=== PATIENT | female | born 1965 | race Two or more races ===

== ENCOUNTER 2018-01-18 08:35 | Outpatient (CLI) | payer OTHER | END 2018-01-18 09:01 | disposition home or self-care (01) | LOC: TOM 08:35 | DX: C50.412 Malignant neoplasm of upper-outer quadrant of left female breast (principal); D51.1 Vitamin B12 deficiency anemia due to selective vitamin B12 malabsorption with proteinuria; D70.8 Other neutropenia; B27.90 Infectious mononucleosis, unspecified without complication; D51.8 Other vitamin B12 deficiency anemias; D50.8 Other iron deficiency anemias; E55.9 Vitamin D deficiency, unspecified; E78.5 Hyperlipidemia, unspecified; D25.9 Leiomyoma of uterus, unspecified ==

== ENCOUNTER 2018-11-26 09:21 | Outpatient (CLI) | payer OTHER | END 2018-11-26 09:35 | disposition home or self-care (01) | LOC: LAB 09:21 | DX: E03.8 Other specified hypothyroidism (principal); I10 Essential (primary) hypertension; D70.8 Other neutropenia; C50.412 Malignant neoplasm of upper-outer quadrant of left female breast; D51.1 Vitamin B12 deficiency anemia due to selective vitamin B12 malabsorption with proteinuria; E55.9 Vitamin D deficiency, unspecified; R97.0 Elevated carcinoembryonic antigen [CEA] ==

== ENCOUNTER 2018-11-26 10:26 | Outpatient (CLI) | payer OTHER | END 2018-11-26 16:40 | disposition home or self-care (01) | LOC: MAMO-SONO 10:26 | DX: C50.412 Malignant neoplasm of upper-outer quadrant of left female breast (principal) ==

== ENCOUNTER 2019-01-16 07:12 | Outpatient (CLI) | payer OTHER | END 2019-01-16 07:15 | disposition home or self-care (01) | LOC: SONOGRAMA 07:12 | DX: R10.2 Pelvic and perineal pain (principal) ==

== ENCOUNTER → 2019-02-20 | Outpatient (CLI) | payer OTHER | END | disposition home or self-care (01) | LOC: NUCLEAR 12:42 | DX: M81.0 Age-related osteoporosis without current pathological fracture (principal) ==

== ENCOUNTER 2019-03-06 08:25 | Outpatient (CLI) | payer OTHER | END 2019-03-06 10:09 | disposition home or self-care (01) | LOC: LAB 08:25 | DX: Z12.11 Encounter for screening for malignant neoplasm of colon (principal) ==

== ENCOUNTER 2019-08-01 08:21 | Outpatient (CLI) | payer OTHER | END 2019-08-01 08:32 | disposition home or self-care (01) | LOC: LAB 08:21 | DX: D51.1 Vitamin B12 deficiency anemia due to selective vitamin B12 malabsorption with proteinuria (principal); C50.412 Malignant neoplasm of upper-outer quadrant of left female breast; D70.8 Other neutropenia; B27.90 Infectious mononucleosis, unspecified without complication; D51.8 Other vitamin B12 deficiency anemias; D50.8 Other iron deficiency anemias; E55.9 Vitamin D deficiency, unspecified; E78.49 Other hyperlipidemia; D25.9 Leiomyoma of uterus, unspecified; I10 Essential (primary) hypertension; E03.8 Other specified hypothyroidism; R97.0 Elevated carcinoembryonic antigen [CEA]; R97.8 Other abnormal tumor markers ==

== ENCOUNTER 2019-08-07 07:50 | Outpatient (CLI) | payer OTHER | END 2019-08-07 17:00 | disposition home or self-care (01) | LOC: TOM 07:50 | DX: C50.412 Malignant neoplasm of upper-outer quadrant of left female breast (principal); D51.1 Vitamin B12 deficiency anemia due to selective vitamin B12 malabsorption with proteinuria; D70.8 Other neutropenia; B27.90 Infectious mononucleosis, unspecified without complication; D51.8 Other vitamin B12 deficiency anemias; D50.8 Other iron deficiency anemias; E55.9 Vitamin D deficiency, unspecified; E78.49 Other hyperlipidemia; D25.9 Leiomyoma of uterus, unspecified ==

== ENCOUNTER 2020-07-06 09:31 | Outpatient (CLI) | payer OTHER | END 2020-07-06 10:25 | disposition home or self-care (01) | LOC: LAB 09:31 | PROVIDERS: ATTEND Internal Medicine Hematology & Oncology | DX: D50.8 Other iron deficiency anemias (principal); I10 Essential (primary) hypertension; D50.0 Iron deficiency anemia secondary to blood loss (chronic); E03.8 Other specified hypothyroidism; R97.0 Elevated carcinoembryonic antigen [CEA]; R97.8 Other abnormal tumor markers; D51.8 Other vitamin B12 deficiency anemias; C50.412 Malignant neoplasm of upper-outer quadrant of left female breast; D51.1 Vitamin B12 deficiency anemia due to selective vitamin B12 malabsorption with proteinuria; D70.8 Other neutropenia; B27.90 Infectious mononucleosis, unspecified without complication; E55.9 Vitamin D deficiency, unspecified; E78.49 Other hyperlipidemia; D25.9 Leiomyoma of uterus, unspecified ==

== ENCOUNTER 2020-07-13 08:15 | Outpatient (CLI) | payer OTHER | END 2020-07-13 08:30 | disposition home or self-care (01) | LOC: TOM 08:15 | PROVIDERS: ATTEND Internal Medicine Hematology & Oncology | DX: K21.9 Gastro-esophageal reflux disease without esophagitis (principal); C50.412 Malignant neoplasm of upper-outer quadrant of left female breast; D51.1 Vitamin B12 deficiency anemia due to selective vitamin B12 malabsorption with proteinuria; D70.8 Other neutropenia; B27.90 Infectious mononucleosis, unspecified without complication; D51.8 Other vitamin B12 deficiency anemias; D50.8 Other iron deficiency anemias; E55.9 Vitamin D deficiency, unspecified; E78.49 Other hyperlipidemia; D25.9 Leiomyoma of uterus, unspecified ==

== ENCOUNTER 2020-10-21 11:46 | Outpatient (CLI) | payer OTHER | END 2020-10-21 11:58 | disposition home or self-care (01) | LOC: MAMO-SONO 11:46 | PROVIDERS: ATTEND Internal Medicine Hematology & Oncology | DX: N64.59 Other signs and symptoms in breast (principal) ==

== ENCOUNTER → 2022-01-23 07:52 | Outpatient (CLI) | payer OTHER | END | disposition home or self-care (01) | LOC: LAB 07:52 | PROVIDERS: ATTEND Internal Medicine Hematology & Oncology | DX: D50.8 Other iron deficiency anemias (principal); I10 Essential (primary) hypertension; R74.02 Elevation of levels of lactic acid dehydrogenase [LDH]; K76.89 Other specified diseases of liver; E55.9 Vitamin D deficiency, unspecified; E78.2 Mixed hyperlipidemia; E03.8 Other specified hypothyroidism; C50.919 Malignant neoplasm of unspecified site of unspecified female breast; R97.8 Other abnormal tumor markers; R87 Abnormal findings in specimens from female genital organs; C50.512 Malignant neoplasm of lower-outer quadrant of left female breast; D51.1 Vitamin B12 deficiency anemia due to selective vitamin B12 malabsorption with proteinuria; D70.8 Other neutropenia; B27.90 Infectious mononucleosis, unspecified without complication; D51.8 Other vitamin B12 deficiency anemias; E78.5 Hyperlipidemia, unspecified; D25.9 Leiomyoma of uterus, unspecified; D72.818 Other decreased white blood cell count ==

== ENCOUNTER 2022-01-30 07:25 | Outpatient (CLI) | payer OTHER | END 2022-01-30 07:51 | disposition home or self-care (01) | LOC: TOM 07:25 | PROVIDERS: ATTEND Internal Medicine Hematology & Oncology | DX: Z12.31 Encounter for screening mammogram for malignant neoplasm of breast (principal); N63.0 Unspecified lump in unspecified breast; C50.412 Malignant neoplasm of upper-outer quadrant of left female breast; D51.1 Vitamin B12 deficiency anemia due to selective vitamin B12 malabsorption with proteinuria; D70.8 Other neutropenia; B27.90 Infectious mononucleosis, unspecified without complication; D51.8 Other vitamin B12 deficiency anemias; D50.8 Other iron deficiency anemias; E55.9 Vitamin D deficiency, unspecified; E78.5 Hyperlipidemia, unspecified; D25.9 Leiomyoma of uterus, unspecified; D72.818 Other decreased white blood cell count ==

== ENCOUNTER 2022-10-23 12:25 | Outpatient (CLI) | payer OTHER | END 2022-10-23 12:27 | disposition home or self-care (01) | LOC: NUCLEAR 12:25 | PROVIDERS: ATTEND Obstetrics & Gynecology | DX: M85.9 Disorder of bone density and structure, unspecified (principal) ==

== ENCOUNTER 2023-01-22 08:04 | Outpatient (CLI) | payer OTHER | END 2023-01-22 08:11 | disposition home or self-care (01) | LOC: LAB 08:04 | PROVIDERS: ATTEND Obstetrics & Gynecology | DX: D50.8 Other iron deficiency anemias (principal); I10 Essential (primary) hypertension; R74.02 Elevation of levels of lactic acid dehydrogenase [LDH]; K76.89 Other specified diseases of liver; D51.8 Other vitamin B12 deficiency anemias; E55.9 Vitamin D deficiency, unspecified; E78.2 Mixed hyperlipidemia; E03.8 Other specified hypothyroidism; C50.919 Malignant neoplasm of unspecified site of unspecified female breast; R97.8 Other abnormal tumor markers; R97.0 Elevated carcinoembryonic antigen [CEA]; C50.412 Malignant neoplasm of upper-outer quadrant of left female breast; D51.1 Vitamin B12 deficiency anemia due to selective vitamin B12 malabsorption with proteinuria; E78.5 Hyperlipidemia, unspecified; D25.9 Leiomyoma of uterus, unspecified; D72.818 Other decreased white blood cell count; B27.90 Infectious mononucleosis, unspecified without complication; D70.8 Other neutropenia ==

== ENCOUNTER 2023-01-29 08:22 | Outpatient (CLI) | payer OTHER | END 2023-01-29 08:26 | disposition home or self-care (01) | LOC: TOM 08:22 | PROVIDERS: ATTEND Internal Medicine Hematology & Oncology | DX: C50.412 Malignant neoplasm of upper-outer quadrant of left female breast (principal); D51.1 Vitamin B12 deficiency anemia due to selective vitamin B12 malabsorption with proteinuria; D70.8 Other neutropenia; B27.90 Infectious mononucleosis, unspecified without complication; D51.8 Other vitamin B12 deficiency anemias; D50.8 Other iron deficiency anemias; E55.9 Vitamin D deficiency, unspecified; E78.5 Hyperlipidemia, unspecified; D25.9 Leiomyoma of uterus, unspecified; D72.818 Other decreased white blood cell count ==

== ENCOUNTER → 2023-02-05 | Outpatient (CLI) | payer OTHER | END | disposition home or self-care (01) | LOC: MAMO-SONO 07:57 | PROVIDERS: ATTEND Internal Medicine Hematology & Oncology | DX: C50.412 Malignant neoplasm of upper-outer quadrant of left female breast (principal); N63.0 Unspecified lump in unspecified breast; N64.4 Mastodynia; Z12.31 Encounter for screening mammogram for malignant neoplasm of breast ==

== ENCOUNTER 2024-11-10 07:06 | Outpatient (CLI) | payer OTHER | END 2024-11-10 07:19 | disposition home or self-care (01) | LOC: SONOGRAMA 07:06 | PROVIDERS: ATTEND Internal Medicine Hematology & Oncology | DX: C50.412 Malignant neoplasm of upper-outer quadrant of left female breast (principal); D51.1 Vitamin B12 deficiency anemia due to selective vitamin B12 malabsorption with proteinuria; D70.8 Other neutropenia; B27.90 Infectious mononucleosis, unspecified without complication; D51.8 Other vitamin B12 deficiency anemias; D50.8 Other iron deficiency anemias; E55.9 Vitamin D deficiency, unspecified; E78.5 Hyperlipidemia, unspecified; D25.9 Leiomyoma of uterus, unspecified; D72.818 Other decreased white blood cell count; Z90.12 Acquired absence of left breast and nipple ==

== ENCOUNTER 2024-12-24 13:42 | Outpatient (CLI) | payer OTHER | END 2024-12-24 13:43 | disposition home or self-care (01) | LOC: NUCLEAR 13:42 | PROVIDERS: ATTEND Obstetrics & Gynecology | DX: M85.9 Disorder of bone density and structure, unspecified (principal); M81.0 Age-related osteoporosis without current pathological fracture ==

== ENCOUNTER 2025-06-22 08:13 | Outpatient (CLI) | payer OTHER ==
[2025-06-22 09:10] LABS: BASO % 0.6 % (0.1-1.2); EOS # 0.32 (0.04-0.54); EOS % 6.9 % (0.7-7.0); LYMPH # 2.19 (1.18-3.74); LYMPH % 46.9 % (19.3-53.1); MEAN PLATELET VOLUME 10.20 fl (9.4-12.4); MONO # 0.31 (0.24-0.82); MONO % 6.6 % (4.7-12.5); NEUT # 1.82 (1.56-6.13); NEUT % 39.0 % (34.0-71.1); RED CELL DISTRIBUTION WIDTH 13.2 % (11.6-14.4)
[2025-06-22 09:28] LABS: URINE APPEARANCE Clear; URINE BILIRRUBIN Negative (NEGATIVE); URINE BLOOD Negative; URINE COLOR Yellow; URINE GLUCOSE Negative (NEGATIVE); URINE KETONE Negative (NEGATIVE); URINE LEUKOCYTE Trace; URINE NITRATE Negative; URINE PROTEIN Negative (NEGATIVE); URINE UROBILINOGEN 0.2 E.U./dl
[2025-06-22 09:30] LABS: URINE BACTERIA 21.5 uL (0.0-1933); URINE EPITHELIAL CELLS 4.6 uL (0.0-38.8); URINE RBC 2.0 uL (0.0-20.8); URINE WBC 9.8 uL (0.0-23.2)
[2025-06-22 09:44] LABS: URINE CAST 0.00 uL (0.0-1.40)
[2025-06-22 10:26] LABS: ALT/SGPT 33.0 U/L (12-78); AST/SGOT 18.0 U/L (15-37); BILIRUBIN TOTAL 0.24 mg/dL (0.3-1.2); BUN CREA RATIO 24.0 (7.0-25.0); CHOL HDL RATIO 3.3 (0-5.0); CREATININE SERUM 0.54 mg/dL (0.55-1.02); FREE TRIODOTIRONINE 2.86 pg/ml (2.18-3.98); GFR 114.77; GLOBULINA 3.9 G/DL (2.4-3.5); GLUCOSE FASTING 93.0 mg/dL (65-100); HDL 72.0 mg/dl (40-60); LDL 158.0 mg/dl (0-130); OSMOLALITY SERUM 279.0 MOSM/KG (275-295); T4 TOTAL 10.31 UG/DL (4.8-13.9); TSH 2.29 uIU/mL (0.358-3.74); VLDL 11.0 (0-39)
== END 2025-06-22 08:25 | disposition home or self-care (01) ==
LOC: LAB 08:13
PROVIDERS: ATTEND Obstetrics & Gynecology
DX: C34.92 Malignant neoplasm of unspecified part of left bronchus or lung (principal); Z13.29 Encounter for screening for other suspected endocrine disorder; Z13.220 Encounter for screening for lipoid disorders; Z13.1 Encounter for screening for diabetes mellitus; C50.912 Malignant neoplasm of unspecified site of left female breast